=== PATIENT | male | born 1975 | race Caucasian/White ===

== ENCOUNTER 2019-11-24 11:01 | Emergency (ER) | payer OTHER ==
[2019-11-24 12:39] LABS: ABSOLUTE EOSINOPHILS # (AUTO) 0.1 10^3/uL (0.0-0.6); ABSOLUTE LYMPHOCYTES (AUTO) 1.2 10^3/uL (0.5-4.7); ABSOLUTE MONOCYTES (AUTO) 0.6 10^3/uL (0.1-1.4); ABSOLUTE NEUT (AUTO) 7.1 10^3/uL (1.7-8.2); BASOPHILS % (AUTO) 0.3 % (0-2); EOSINOPHILS % (AUTO) 0.6 % (0-6); HEMATOCRIT 42.1 % (37.9-51.0); HEMOGLOBIN 14.7 g/dL (13.5-17.0); LYMPHOCYTES % (AUTO) 13.5 % (13-45); MEAN CORPUSCULAR HEMOGLOBIN 31.6 pg (27.0-33.4); MEAN CORPUSCULAR HGB CONC 34.9 g/dL (32.0-36.0); MEAN CORPUSCULAR VOLUME 90 fl (80-97); MONOCYTES % (AUTO) 6.2 % (3-13); PLATELET COUNT 239 10^3/uL (150-450); RED BLOOD COUNT 4.66 10^6/uL (4.35-5.55); RED CELL DISTRIBUTION WIDTH 13.4 % (11.5-14.0); SEGMENTED NEUTROPHILS % (AUTO) 79.4 % (42-78); TOTAL CELLS COUNTED % (AUTO) 100 %
[2019-11-24 12:49] LABS: ALBUMIN 3.7 g/dL (3.5-5.0); ALKALINE PHOSPHATASE 76 U/L (38-126); ASPARTATE AMINO TRANSFERASE 19 U/L (17-59); BILIRUBIN,DIRECT 0.2 mg/dL (0.0-0.4); BILIRUBIN,TOTAL 0.4 mg/dL (0.2-1.3); BLOOD UREA NITROGEN 18 mg/dL (7-20); CALCIUM 8.8 mg/dL (8.4-10.2); GLUCOSE 90 mg/dL (75-110); POTASSIUM 4.5 mmol/L (3.6-5.0); TOTAL PROTEIN 6.6 g/dL (6.3-8.2)
[2019-11-24 12:55] LABS: CARBON DIOXIDE 28 mmol/L (22-30); CHLORIDE 111 mmol/L (98-107)
[2019-11-24 13:02] LABS: ANION GAP 2 (5-19)
--- NOTE | 2019-11-24 13:03 | RADIOLOGY REPORT (SQ) ---
EXAM DESCRIPTION: CHEST SINGLE VIEW IMAGES COMPLETED DATE/TIME: 11/24/2019 12:50 pm REASON FOR STUDY: Syncope, left arm pain COMPARISON: None. EXAM PARAMETERS: NUMBER OF VIEWS: One view. TECHNIQUE: Single frontal radiographic view of the chest acquired. RADIATION DOSE: NA LIMITATIONS: None. FINDINGS: LUNGS AND PLEURA: No opacities, masses or pneumothorax. No pleural effusion. MEDIASTINUM AND HILAR STRUCTURES: No masses. Contour normal. HEART AND VASCULAR STRUCTURES: Heart normal in size. Normal vasculature. BONES: No acute findings. HARDWARE: None in the chest. OTHER: No other significant finding. IMPRESSION: NO ACUTE RADIOGRAPHIC FINDING IN THE CHEST. TECHNICAL DOCUMENTATION: JOB ID: [id number] 2010 [employer]- All Rights Reserved Reading location - IP/workstation name: [email or web address]
--- NOTE | 2019-11-24 13:52 | ER Document Report ---
ED General - General Chief Complaint: Chest Pain Stated Complaint: SHORTNESS OF BREATH Time Seen by Provider: 11/24/19 11:59 - HPI Notes: Patient is a 44-year-old dominant presents to the emergency department for evaluation. Yesterday he woke, had a sharp abdominal pain as if he had to have a bowel movement. He sat down to have a bowel movement, instead had a syncopal episode. He fell, struck his head on the wall. He does not believe he was out for long, because striking his head woke someone, who came in to check on him. He was awake at that point. He states that he felt a little "not right" and weak for the rest of that day, as well as today. He states today he has some pain intermittently between his shoulder blades, and in his left arm. He describes it as sharp. He denies any associated he has had some very mild shortness of breath. Nausea, diaphoresis, near syncope. He states he also felt some "flutters" in his chest but he was not sure if that was possibly secondary to anxiety. At this gracious point he has absolutely no pain, he states he just does not quite feel right. He denies any other symptoms. His last tetanus shot was less than 5 years ago. - Related Data Allergies/Adverse Reactions: No Known Allergies Allergy (Unverified 11/24/19 11:41) Home Medications: None Past Medical History - General Information source: Patient - Social History Smoking Status: Former Smoker - Still vapes Chew tobacco use (# tins/day): No Frequency of alcohol use: Social Drug Abuse: None Family History: CAD - Not premature Patient has suicidal ideation: No Patient has homicidal ideation: No Past Surgical History: Reports: Hx Appendectomy Review of Systems - Review of Systems Constitutional: See HPI Cardiovascular: See HPI Physical Exam - Vital signs Vitals: Temp Pulse Resp BP Pulse Ox 97.8 F 68 16 104/77 97 11/24/19 11:15 11/24/19 11:15 11/24/19 11:15 11/24/19 11:15 11/24/19 11:15 - Notes Notes: Vital signs reviewed, please refer to chart. Head is normocephalic, atraumatic. Pupils equal round, reactive to light. Neck is supple without meningismus. Heart is regular rate and rhythm. Lungs are clear to auscultation bilaterally. Abdomen is soft, nontender, normoactive bowel sounds throughout. Extremities without cyanosis, clubbing. Posterior calves are nontender. Peripheral pulses are equal. Skin is warm and dry. Patient is awake, alert, neurological exam is nonfocal. Course - Re-evaluation Re-evalutation: 11/24/19 13:50 Patient presents to the emergency department for evaluation. The situation that he describes yesterday was clearly vasovagal syncope. He felt hot all over, was trying to have a bowel movement, and passed out. His vital signs are stable here today. His laboratory investigations failed to reveal any significant abnormality. The pain in his back is not reproducible. His peripheral pulses are equal. I do not have any clear etiology for his pain between his scapula, but his mediastinum is not widened, his pressures are normal. Explained to the patient he needs to follow-up with primary care and he voiced understanding. He is to return to the ER with worsening or new concerning symptoms of any sort. - Vital Signs Vital signs: Temp Pulse Resp BP Pulse Ox 97.8 F 68 16 104/77 97 11/24/19 11:15 11/24/19 11:15 11/24/19 11:15 11/24/19 11:15 11/24/19 11:15 - Laboratory Result Diagrams: 11/24/19 11:51 11/24/19 11:51 Laboratory results interpreted by me: 11/24/19 11/24/19 11:51 11:51 Seg Neutrophils % 79.4 H Chloride 111 H Anion Gap 2 L - Diagnostic Test Radiology reviewed: Image reviewed, Reports reviewed Radiology results interpreted by me: 11/24/19 13:50 Chest X-Ray 11/24/19 12:29 IMPRESSION: NO ACUTE RADIOGRAPHIC FINDING IN THE CHEST. - EKG Interpretation by Me Additional EKG results interpreted by mn: 11/24/19 13:50 Sinus mechanism with a rate of 69 bpm. Normal axis and intervals. No acute ST changes concerning for ischemia or infarction. Discharge - Discharge Clinical Impression: Vasovagal syncope, Left arm pain Condition: Stable Disposition: HOME, SELF-CARE Instructions: Syncopal Episode ([facility]) Additional Instructions: Rest, stay well-hydrated. Follow-up with primary care this week. Return to the emergency department with worsening or new concerning symptoms of any sort.
[2019-11-24 14:23] VITALS: BP 103/62
--- NOTE | 2019-11-24 21:25 | EKG REPORT ---
SEVERITY:- NORMAL ECG - SINUS RHYTHM : Confirmed by: Casie Whiting MD 24-Nov-2019 21:24:22
== END 2019-11-24 14:02 | disposition home or self-care (01) ==
LOC: ER 11:01
DX: R55 Syncope and collapse (principal); M54.6 Pain in thoracic spine; M79.602 Pain in left arm; R11.0 Nausea; R61 Generalized hyperhidrosis; R07.9 Chest pain, unspecified; R06.02 Shortness of breath; R10.9 Unspecified abdominal pain; W18.00XA Striking against unspecified object with subsequent fall, initial encounter; F17.290 Nicotine dependence, other tobacco product, uncomplicated
CPT/HCPCS: 36415; 71045; 80053; 84484; 85025; 93005; 93010; 99284